=== PATIENT | male | born 1980 ===

== ENCOUNTER 2023-07-24 05:19 | Day surgery (SDC) | payer OTHER ==
[2023-07-17 09:33] LABS: HEMATOCRIT 46.3 % (39.0-48.0); HEMOGLOBIN 15.8 g/dL (13-16.00); MEAN CELL VOLUME 90.2 fL (80.0-100.00); MEAN CORPUSCULAR HEMOGLOBIN 30.8 pg (27.00-32.0); MEAN CORPUSCULAR HGB CONC 34.2 g/dl (32.0-36.0); PLATELET COUNT 194 K/uL (150-450); RED BLOOD COUNT 5.13 M/uL (4.00-6.00); RED CELL DISTRIBUTION WIDTH 12.7 % (11.5-14.5)
[2023-07-17 09:44] LABS: INR 1.07; PARTIAL THROMBOPLASTIN TIME 28.5 SECONDS (22.0-34.0); PROTHROMBIN TIME 11.2 SECONDS (9.0-11.5)
[2023-07-17 09:47] LABS: CALCIUM 9.2 mg/dL (8.5-10.1); CREATININE SERUM 0.85 mg/dL (0.70-1.30); GFR 97.47; POTASSIUM 3.97 mEq/L (3.5-5.1)
[~2023-07-24] VITALS: Ht 188 cm; Wt 77.1 kg
[2023-07-24] MEDS ORDERED: POLY119PG PO ×2 (09:46→11:54)
[2023-07-24] MEDS ORDERED: NEURONTIN300 MG PO ×2 (09:46→11:54)
[2023-07-24] MEDS ORDERED: PERCOCET 5-3251 EACH PO ×2 (09:46→11:54)
== END 2023-07-24 12:00 | disposition home or self-care (01) ==
LOC: CIR.AMB 05:19
PROVIDERS: ATTEND Surgery
DX: K40.90 Unilateral inguinal hernia, without obstruction or gangrene, not specified as recurrent (principal); Z20.822 Contact with and (suspected) exposure to COVID-19
CPT/HCPCS: 49650; C1781